=== PATIENT | male | born 1975 | race Caucasian/White ===

== ENCOUNTER 2024-01-10 08:08 | Observation (INO) | payer SELFPAY ==
[2024-01-10] VITALS (11 sets, daily range): BP systolic 113–140; BP diastolic 62–88; PULSE 62–85; RESP 18–24; TEMP 36.7–37.2; O2SAT 95–99; BMI 35.1
--- NOTE | 2024-01-10 08:12 | ECG_ITS ---
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 Measurements Intervals [place] Rate: 67 P: 38 KS: 146 QRS: 40 QRSD: 78 T: 32 QT: 339 QTc: 359 Interpretive Statements SINUS RHYTHM WITH OCCASIONAL VENTRICULAR PREMATURE COMPLEXES NONSPECIFIC ST & T-WAVE ABNORMALITY No previous ECG available for comparison Electronically Signed On 01-10-2024 23:05:49 CDT by Jonathan Urias M.D. [email or web address] medical [id number]
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
--- NOTE | 2024-01-10 08:29 | W.ED.CHESTPA ---
HPI - Chest Pain General: Chief Complaint: Chest Pain Stated Complaint: cp Time Seen by Provider: 01/10/24 08:18 History of Present Illness: 48-year-old male presents to the emergency room with complaints of right-sided chest pain. Radiates into his back. Patient has not had discomfort like this before. Began suddenly this morning. No history of DVT no recent fever sweats chills cough shortness of breath. No productive cough no history of diabetes patient is a smoker. He has no family history of early heart disease no history of PE or DVT. Associated symptoms: Deny abdominal pain, dyspnea or fever(s) Related Data Home Medications Medication Instructions Recorded Confirmed cetirizine 10 mg tablet 10 mg PO DAILY PRN allergies 01/10/24 01/10/24 Allergies Allergy/AdvReac Type Severity Reaction Status Date / Time No Known Allergies Allergy Verified 01/10/24 08:20 Review of Systems Const: Denies: fever(s) or chills Card: Reports: chest pain Resp: Denies: dyspnea GI: Denies: abdominal pain : Denies: dysuria, urinary frequency or urinary urgency Musc: Denies: neck pain or back pain Skin/Breast: Denies: rash PFSH ED PFSH: Medical History No pertinent past medical history Surgical History No pertinent past surgical history Social History Smoking and tobacco/nicotine status: current every day tobacco/nicotine user e-cigarettes E-Cigarette Details: vaporizer device Alcohol intake: never Substance/Drug Use: never Physical Exam Const: GENERAL APPEARANCE: cooperative ORIENTATION/CONSCIOUSNESS: Yes awake, Yes oriented to person, Yes oriented to place and Yes oriented to time HENMT: COMMON NORMALS: normocephalic, atraumatic and hearing grossly normal bilaterally HEAD & SCALP: normocephalic and atraumatic Resp: COMMON NORMALS: normal respiratory effort, No retractions, No use of accessory muscles and clear to auscultation bilaterally AUSCULTATION: clear to auscultation bilaterally Cardio: COMMON NORMALS: regular rate, regular rhythm and No murmurs present (Cardio) RATE: regular rate RHYTHM: regular rhythm GI: COMMON NORMALS: Soft to palpation and No hepatosplenomegaly present AUSCULTATION: Yes normoactive bowel sounds PALPATION: Yes Soft to palpation, No Tenderness to palpation present (GI), No Guarding due to palpation present (GI) and Yes No hepatosplenomegaly present Extremity: COMMON NORMALS: normal to inspection, capillary refill normal, no clubbing, cyanosis or edema, no calf tenderness and no pedal edema Neuro: SENSORIUM/ORIENTATION: Yes oriented to person, Yes oriented to place and Yes oriented to time Skin: COMMON NORMALS: no rashes or lesions noted GENERAL SKIN EXAM: no rashes or lesions noted Course Vital Signs: Vital signs: Vital Signs Temperature 98.2 F 01/10/24 14:02 Pulse Rate 85 01/10/24 14:02 Respiratory Rate 18 01/10/24 08:15 Blood Pressure 136/88 01/10/24 14:02 Pulse Oximetry 95 01/10/24 14:02 Oxygen Delivery Me thod Room Air 01/10/24 14:02 MDM - Chest Pain Medical Decision Making Chest pain is reproducible with change in position and with deep inhalation and exhalation shallow breathing is currently reducible we did give a GI cocktail early on with no relief of symptoms with that. His initial EKG showed some nonspecific ST changes a second EKG showed some questionable ST elevation possible early repull there is no reciprocal changes I did contact Dr. Olivas he reviewed came and seen the patient. Given his reported symptoms he is not losing acute STEMI. Cardiac enzymes trended negative. Patient continues to have pain. He denies any IV drug use. Cultures have been done we will admit the patient for pericarditis a echo has been done and is pending read and discussed with Dr. Olivas he recommended admission to hospitalist and consult for himself. Medical Records I reviewed the patient's medical records. Lab Data I reviewed the patient's lab results. 01/10/24 08:22 01/10/24 08:22 Radiology Impressions Chest X-Ray 01/10/24 08:19 IMPRESSION: 1. Cardiomegaly with probable basilar edema. Laboratory Results WBC 7.47 10^3/uL (3.29-11.43) 01/10/24 08:22 RBC 5.30 10^6/uL (3.85-5.65) 01/10/24 08:22 Hgb 14.60 g/dL (11.27-16.99) 01/10/24 08:22 Hct 46.6 % (37-53) 01/10/24 08:22 MCV 87.9 fl (82-101) 01/10/24 08:22 MCH 27.5 pg (27-33) 01/10/24 08:22 MCHC 31.3 g/dL (30-55) 01/10/24 08:22 RDW 15.9 % (12.1-15.1) H 01/10/24 08:22 Plt Count 254 10^3/cmm (157-399) 01/10/24 08:22 MPV 11.0 fL (7.4-10.4) H 01/10/24 08:22 Neut % (Auto) 64.9 % 01/10/24 08:22 Lymph % (Auto) 25.2 % 01/10/24 08:22 [place] % (Auto) 6.2 % 01/10/24 08:22 Eos % (Auto) 2.8 % 01/10/24 08:22 Baso % (Auto) 0.5 % 01/10/24 08:22 Neut # (Auto) 4.85 10^3/uL (1.8-7.7) 01/10/24 08:22 Lymph # (Auto) 1.9 10^3/uL (0.8-4.8) 01/10/24 08:22 [place] # (Auto) 0.5 10^3/uL (0.2-0.9) 01/10/24 08:22 Eos # (Auto) 0.2 10^3/uL (0.0-0.8) 01/10/24 08:22 Baso # (Auto) 0.0 10^3/uL (0.0-0.1) 01/10/24 08:22 Nucleated RBC % (auto) 0 % 01/10/24 08:22 Nucleated RBCs # 0.0 /100WBC 01/10/24 08:22 ESR 4 mm/hr (0-10) 01/10/24 13:12 Sodium 141 mmol/L (136-145) 01/10/24 08:22 Potassium 4.4 mmol/L (3.5-5.1) 01/10/24 08:22 Chloride 104 mmol/L (98-107) 01/10/24 08:22 Carbon Dioxide 27 mmol/L (22-29) 01/10/24 08:22 Anion Gap 14.4 (5-19) 01/10/24 08:22 BUN 16 mg/dL (6-20) 01/10/24 08:22 Creatinine 1.1 mg/dL (0.7-1.2) 01/10/24 08:22 GFR Calculation 72.1 mL/min (90-130) L 01/10/24 08:22 Glucose 124 mg/dL (65-115) H 01/10/24 08:22 Estimat Average Glucose 131 01/10/24 08:22 Hemoglobin A1c 6.2 % (4.0-6.0) H 01/10/24 08:22 Calculated Osmolality 295 mOsm/kg (285-295) 01/10/24 08:22 Calcium 9.6 mg/dL (8.5-10.5) 01/10/24 08:22 Ferritin 288 ng/mL (30-400) 01/10/24 08:22 Total Bilirubin 0.4 mg/dL (0.15-1.2) 01/10/24 08:22 AST 21 U/L (0-40) 01/10/24 08:22 ALT 21 U/L (0-41) 01/10/24 08:22 Alkaline Phosphatase 64 U/L (40-130) 01/10/24 08:22 Troponin T Baseline 8 ng/L (0-15) 01/10/24 08:22 Troponin T 120 Minute 8.08 ng/L (0-15) 01/10/24 10:17 Delta Troponin T 0.08 ABS# (0-10) 01/10/24 10:17 C-Reactive Protein 3.0 mg/L (0.0-4.9) 01/10/24 08:22 C-Reactive Protein Cancelled 01/10/24 08:22 NT-Pro-B Natriuret Pep < 36 pg/mL (0-125) 01/10/24 08:22 NT-Pro-B Natriuret Pep < 36 pg/mL (0-125) 01/10/24 08:22 Total Protein 6.8 g/dL (6.6-8.7) 01/10/24 08:22 Albumin 4.3 g/dL (3.5-5.2) 01/10/24 08:22 Globulin 2.5 g/dL (1.3-4.6) 01/10/24 08:22 Procalcitonin 0.06 ng/mL (0-0.5) 01/10/24 08:22 Urine Color Yellow (Yellow) 01/10/24 09:23 Urine Appearance Clear (CLEAR) 01/10/24 09:23 Urine pH 5.0 (5-7) 01/10/24 09:23 Ur Specific [place] 1.026 (1.005-1.030) 01/10/24 09:23 Urine Protein Negative (Negative) 01/10/24 09:23 Urine Glucose (UA) Negative (Normal) 01/10/24 09:23 Urine Ketones Negative (Negative) 01/10/24 09:23 Urine Blood Negative (Negative) 01/10/24 09:23 Urine Nitrate Negative (Negative) 01/10/24 09:23 Urine Bilirubin Negative (Negative) 01/10/24 09:23 Urine Urobilinogen 0.2 mg/dL (Negative) 01/10/24 09:23 Ur Leukocyte Esterase Negative (Negative) 01/10/24 09:23 Amorphous Sediment Not Reportable 01/10/24 09:23 Urine Opiates Screen Negative ng/mL (Negative) 01/10/24 09:23 Ur Barbiturates Screen Negative ng/mL (Negative) 01/10/24 09:23 Ur Phencyclidine Scrn Negative ng/mL (Negative) 01/10/24 09:23 Ur Amphetamines Screen Negative ng/mL (Negative) 01/10/24 09:23 U Benzodiazepines Scrn Negative ng/mL (Negative) 01/10/24 09:23 Urine Cocaine Screen Negative ng/mL (Negative) 01/10/24 09:23 U Marijuana (THC) Screen Negative ng/mL (Negative) 01/10/24 09:23 Ethyl Alcohol < 10 mg/dL (0-10) 01/10/24 08:22 All radiology interpretation(s) finalized by discharge Discharge Plan Discharge Patient Disposition: Admitted As Inpatient Admit Provider: Siddharth Castrejon Clinical Impression: Pericarditis Condition: Stable Coding Level of Care Code ED Property Clerk for Ilene Ellis
[2024-01-10 08:45] LABS: Basophils % 0.5 %; Eosinophils # 0.2 10^3/uL (0.0-0.8); Eosinophils % 2.8 %; Hematocrit 46.6 % (37-53); Lymphocytes # 1.9 10^3/uL (0.8-4.8); Lymphocytes % 25.2 %; Mean Corpuscular HGB Conc 31.3 g/dL (30-55); Mean Corpuscular Hemoglobin 27.5 pg (27-33); Mean Corpuscular Volume 87.9 fl (82-101); Monocytes # 0.5 10^3/uL (0.2-0.9); Monocytes % 6.2 %; Neutrophils # 4.85 10^3/uL (1.8-7.7); Neutrophils % 64.9 %; Nucleated Red Blood Cells % 0 %; Platelet Count 254 10^3/cmm (157-399); Red Cell Distribution Width 15.9 % (12.1-15.1); White Blood Count 7.47 10^3/uL (3.29-11.43)
[2024-01-10] MEDS: ketorolac 30 mg/mL INJ IVP ×2 (08:49→10:21)
[2024-01-10] MEDS: lidocaine 2% viscous 15 ML, aluminum-mag hydrox-simethicon 30 ML, sucralfate oral liq 1 GM PO (08:49)
[2024-01-10 09:00] LABS: Troponin(5th) Baseline 8 ng/L (0-15)
[2024-01-10 09:03] LABS: Alanine Aminotransferase 21 U/L (0-41); Albumin Level 4.3 g/dL (3.5-5.2); Alkaline Phosphatase 64 U/L (40-130); Aspartate Amino Transferase 21 U/L (0-40); Blood Urea Nitrogen 16 mg/dL (6-20); Calcium 9.6 mg/dL (8.5-10.5); Carbon Dioxide 27 mmol/L (22-29); Chloride 104 mmol/L (98-107); Creatinine Clr Calc Pharmacy 107.8887; Globulin 2.5 g/dL (1.3-4.6); Glomerular Filtration Rate 72.1 mL/min (90-130); Glucose 124 mg/dL (65-115); Osmolality Calculated 295 mOsm/kg (285-295); Sodium 141 mmol/L (136-145); Total Bilirubin 0.4 mg/dL (0.15-1.2); Total Protein 6.8 g/dL (6.6-8.7)
[2024-01-10 09:04] LABS: Anion Gap 14.4 (5-19); Potassium 4.4 mmol/L (3.5-5.1)
[2024-01-10 09:36] LABS: Add Urine Microscopic? NO
[2024-01-10 09:42] LABS: Bilirubin Urine Negative (Negative); Blood Urine Negative (Negative); Glucose Urine UA Negative (Normal); Ketones Urine Negative (Negative); Leukocyte Esterase Urine Negative (Negative); Nitrate Urine Negative (Negative); Protein Urine Negative (Negative); Specific Gravity, Urine 1.026 (1.005-1.030); Urine Appearance Clear (CLEAR); Urine Color Yellow (Yellow); Urobilinogen Urine 0.2 mg/dL (Negative)
--- NOTE | 2024-01-10 10:01 | ECG_ITS ---
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 Measurements Intervals [place] Rate: 64 P: 64 RI: 164 QRS: 54 QRSD: 79 T: 33 QT: 359 QTc: 370 Interpretive Statements SINUS RHYTHM WITH SINUS ARRHYTHMIA ST ELEVATION CONSISTENT WITH INJURY, PERICARDITIS, OR EARLY REPOLARIZATION [ST ELEVATION W/O NORMALLY INFLECTED T-WAVE] NONSPECIFIC ST & T-WAVE ABNORMALITY Compared to ECG 01/10/2024 08:12:53 ST (T wave) deviation now present Early repolarization now present Ventricular premature complex(es) no longer present T-wave abnormality still present Electronically Signed On 01-10-2024 23:13:13 CDT by Jonathan Urias M.D. [id number]
[2024-01-10 10:04] LABS: Charge for UA Resulting for Rev
--- NOTE | 2024-01-10 10:15 | USCV_ITS ---
Librado Yadav Age: 48 Gender: M : 1975 Exam Date: 01/10/2024 11:07 Ordering Phys: Keith Turner DO Technologist: CT Exam Location: [facility] [place] Indication: cp BP: 126 / 88 HR: 54 Rhythm: Sinus Technical Quality: Adequate MEASUREMENTS (Male / Female) Normal Values 2D ECHO LVOT Diameter 2.1 cm LV Ejection Fraction MOD 4C 56.0 % LV Ejection Fraction MOD 2C 58.3 % LV Ejection Fraction 2C AL 58.3 % LA Diameter 3.1 cm RA Systolic Volume 4C AL 37.6 ml RA Systolic Volume 4C MOD 32.6 ml LA Sys Volume AL 56.2 cm cubed LA Sys Volume Index AL 23.2 cm cubed/m squared Aorta at Sinotubular Diameter 2.6 cm M-MODE LA Ao Ratio MM 1.2 AV Cusp Separation MM 2.4 cm DOPPLER AV Peak Velocity 102.0 cm/s LVOT Peak Velocity 84.0 cm/s AV Area Cont Eq vti 3.5 cm squared AV Area Cont Eq pk 3.0 cm squared MV Peak Velocity 68.0 cm/s MV Area PHT 4.2 cm squared Mitral E to A Ratio 1.4 TR Peak Velocity 153.0 cm/s TR Peak Gradient 9.4 mmHg TV Peak E Velocity 72.0 cm/s Right Atrial Pressure 3.0 mmHg Pulmonary Artery Systolic Pressu 12.4 mmHg PV Peak Velocity 93.0 cm/s FINDINGS Left Ventricle Left ventricle is normal in size. LV systolic function is normal with EF 55 to 60%. No regional wall motion abnormalities are seen. Right Ventricle Normal in size and function Right Atrium Normal in size Left Atrium Normal in size Mitral Valve Structurally normal mitral valve. Mild mitral regurgitation. Aortic Valve Structurally normal aortic valve. No significant stenosis or regurgitation. Tricuspid Valve Mild tricuspid regurgitation. Pulmonary artery systolic pressure is normal. Pulmonic Valve Not well visualized Pericardium Normal Aorta Normal in size IVC Appears to be normal CONCLUSIONS LV systolic function is normal with EF of 55-60% Mild mitral regurgitation Mild tricuspid regurgitation No comparison studies are available. Kristian Olivas MD (Electronically Signed) Final Date: 10 January 2024 16:56 S
[2024-01-10 10:38] LABS: NT Pro B Type Natriuretic Pept < 36 pg/mL (0-125)
[2024-01-10 10:48] LABS: Troponin 5 2HR 8.08 ng/L (0-15); Troponin 5 2HR Delta 0.08 ABS# (0-10)
--- NOTE | 2024-01-10 11:46 | PC.NURSE ---
TOPICAL NITRO NOT ADMINISTERED DUE TO HYPOTENSION 110/88
[2024-01-10 13:17] LABS: Erythrocyte Sedimentation Rate 13 mm/hr (0-10)
[2024-01-10 13:25] LABS: Erythrocyte Sedimentation Rate 4 mm/hr (0-10)
[2024-01-10 13:35] LABS: Alcohol Level < 10 mg/dL (0-10)
--- NOTE | 2024-01-10 13:38 | P.HP_ITS ---
Providers/Chief Complaint 2 Admitting Physician: Siddharth Castrejon MD Chief Complaint: cp History of Present Illness Librado Yadav is a 48 year old male with no significant past medical history, was incarcerated for over 30 years, recently got out of residential, he tells me that he has not been eating healthy for the last few weeks, but today he started to develop severe substernal chest pain, stabbing-like sensation, he thought it was severe acid reflux, as he has been eating what ever he wants for the last few weeks, however the severe stabbing chest pain persisted and then radiated to his right arm, associate with numbness and tingling of the right arm, and then started radiating to the back, he denies any fevers, no chills, no cough, no nausea, no vomiting, no abdominal pain, no lightheadedness, no dizziness, no recent sick contacts no recent travel, no calf pain, calf swelling, hemoptysis, he does tell me that the chest pain is persisting currently but the chest pain is quite steady, 3 out of 10 Review of Systems 2 Const: Denies: fever(s) Card: Reports: chest pain Resp: Denies: dyspnea GI: Denies: abdominal pain Medications/Allergies Home Medications Medication Instructions Recorded Confirmed Last Taken Type cetirizine 10 mg tablet 10 mg PO DAILY PRN allergies 01/10/24 01/10/24 Unknown History Allergies Allergy/AdvReac Type Severity Reaction Status Date / Time No Known Allergies Allergy Verified 01/10/24 08:20 PFSH Acute 2 PFSH: Medical History (Updated 01/10/24 @ 13:45 by Siddharth Castrejon MD) No pertinent past medical history Surgical History (Updated 01/10/24 @ 13:43 by Siddharth Castrejon MD) No pertinent past surgical history Social History (Updated 01/10/24 @ 13:44 by Siddharth Castrejon MD) Smoking and tobacco/nicotine status: current every day tobacco/nicotine user e- cigarettes E-Cigarette Details: vaporizer device Alcohol intake: never Substance/Drug Use: never Vitals/I&O/Wt Last Vital Signs Temp 98.1 F 01/10/24 08:15 Pulse 63 01/10/24 12:27 Resp 18 01/10/24 08:15 BP 114/79 01/10/24 12:27 Pulse Ox 99 01/10/24 12:27 O2 Del Method Room Air 01/10/24 12:27 Weight last 48 hrs Weight 114.305 kg Physical Exam 2 Const: COMMON NORMALS: no acute distress and patient oriented x3 HENMT: COMMON NORMALS: normocephalic HEAD & SCALP: normocephalic Eye: COMMON NORMALS: Equal, round and reactive pupils present and EOMs intact bilaterally Neck/C-Spine: COMMON NORMALS: no JVD Lymph: LYMPHATIC: no lymphadenopathy noted Resp: COMMON NORMALS: normal respiratory effort, No retractions, No use of accessory muscles and clear to auscultation bilaterally AUSCULTATION: clear to auscultation bilaterally Cardio: COMMON NORMALS: regular rate, regular rhythm, S1 normal heart sound present and S2 normal heart sound present RATE: regular rate RHYTHM: r egular rhythm HEART SOUNDS: S1 normal heart sound present and S2 normal heart sound present GI: COMMON NORMALS: Normal to inspection, nondistended, normoactive bowel sounds present, Soft to palpation and non-tender Extremity: COMMON NORMALS: no calf tenderness and no pedal edema Neuro: COMMON NORMALS: patient oriented x3, CN's II-XII intact bilaterally and moves all extremities Psych: COMMON NORMALS: mental status grossly normal Data 01/10/24 08:22 01/10/24 08:22 Micro: Microbiology 01/10/24 10:45 Blood Culture - Preliminary Blood SPECIMEN COLLECTED 01/10/24 10:51 Blood Culture - Preliminary Blood SPECIMEN COLLECTED A&P Assessment and plan (1) Chest pain: - Serial EKGs, serial troponins, telemetry monitoring -Continue aspirin, statin, -Cardiac echo -GI cocktail -Morphine for pain -CRP, Pro-Navdeep, sed rate, respiratory viral panel, ANGELA Attestations 2 Medical Necessity Statement*: Patient requires hospitalization, outpatient with observation, for chest pain Diagnoses Chest pain R07.9
[2024-01-10 13:42] LABS: Procalcitonin 0.06 ng/mL (0-0.5)
[2024-01-10 13:51] LABS: Amphetamines Screen Urine Negative (Negative); Barbiturates Screen Urine Negative (Negative); Benzodiazepines Screen Urine Negative (Negative); Cocaine Screen Urine Negative (Negative); Opiate Screen Urine Negative (Negative); PCP Screen Urine Negative (Negative); THC Screen Urine Negative (Negative)
[2024-01-10 14:00] LABS: Ferritin 288 ng/mL (30-400); NT Pro B Type Natriuretic Pept < 36 pg/mL (0-125)
[2024-01-10 14:14] LABS: Estmated Average Glucose 131; Hemoglobin A1C 6.2 % (4.0-6.0)
[2024-01-10 14:21] LABS: Chol HDL Ratio 4.88 mg/dL (1.0-5.00); Cholesterol 200 mg/dL (0-200); HDL Cholesterol 41 mg/dL (60-100); LDL Cholesterol Calculated 147 mg/dL (50-129); LDL HDL Ratio 3.59 RATIO (0.00-3.22); Thyroid Stimulating Hormone 1.42 uIU/mL (0.27-4.20); Triglycerides 61 mg/dL (0-150)
[2024-01-10] MEDS: enoxaparin 40 mg/0.4 mL Syringe SUBCUT (15:22)
[2024-01-10] MEDS: pantoprazole 40 mg SDV IVP (15:22)
[2024-01-10 15:28] LABS: Adenovirus Not Detected (NOT DETECT); Chlamydia Pneumoniae Not Detected (NOT DETECT); Coronavirus 229E,HKU1,NL63,OC4 Not Detected (NOT DETECT); Human Metapneumovirus Not Detected (NOT DETECT); Human Rhinovirus/Enterovirus Not Detected (NOT DETECT); Influenza A Not Detected (NOT DETECT); Influenza A H1 Not Detected (NOT DETECT); Influenza A H1-2009 Not Detected (NOT DETECT); Influenza A H3 Not Detected (NOT DETECT); Influenza B Not Detected (NOT DETECT); Mycoplasma Pneumoniae Not Detected (NOT DETECT); Parainfluenza Virus Type 1 Not Detected (NOT DETECT); Parainfluenza Virus Type 2 Not Detected (NOT DETECT); Parainfluenza Virus Type 3 Not Detected (NOT DETECT); Parainfluenza Virus Type 4 Not Detected (NOT DETECT); Respiratory Syncytial Virus A Not Detected (NOT DETECT); Respiratory Syncytial Virus B Not Detected (NOT DETECT); SARS-COV-2 Not Detected (NOT DETECT)
[2024-01-10 15:47] LABS: Troponin 5 6HR 8.28 ng/L (0-15); Troponin 5 6HR Delta 0.28 ng/L (0-12)
--- NOTE | 2024-01-10 16:00 | ECG_ITS ---
[facility] Test Date: 2024-01-10 Pat Name: Librado Yadav Department: Room: 107 Gender: Male Assessment Nurse: : 1975 Requested By: Keith Cameron Order Number: [id number] Ino MD: Jonathan Urias M.D. Measurements Intervals [place] Rate: 77 P: 66 DE: 155 QRS: 47 QRSD: 85 T: 2 QT: 334 QTc: 378 Interpretive Statements SINUS RHYTHM POSSIBLE LEFT ATRIAL ENLARGEMENT [-0.1mV P-WAVE IN V1/V2] NONSPECIFIC ST & T-WAVE ABNORMALITY Compared to ECG 01/10/2024 10:01:10 Sinus arrhythmia no longer present ST (T wave) deviation no longer present Early repolarization no longer present T-wave abnormality still present Electronically Signed On 01-10-2024 23:10:19 CDT by Jonathan Urias M.D. [id number]
--- NOTE | 2024-01-10 16:57 | PM.CONSULT ---
Providers/Reason For Consult Consulting Physician/Specialty*: Kristian Olivas MD/ Cardiology Reason for Consult*: Chest pain/EKG changes Requesting Physician: Dr Turner Attending Physician: Siddharth Castrejon MD History of Present Illness History of Present Illness Librado Yadav is a 48 year old male with no significant prior cardiac history who presented to hospital with severe right-sided chest pain. On and off for a few weeks. Feels acid reflux related feeling. Patient's chest pain symptoms are atypical. Deep breathing worsens it. EKG shows dynamic changes consistent with early repolarization vs pericarditis. Troponins have not trended up. Blood pressure is elevated. Review of Systems Const: Denies: fever(s) Card: Reports: chest pain Resp: Denies: dyspnea GI: Denies: abdominal pain Medications/Allergies Home Medications Medication Instructions Recorded Confirmed Last Taken Type cetirizine 10 mg tablet 10 mg PO DAILY PRN allergies 01/10/24 01/10/24 Unknown History Allergies Allergy/AdvReac Type Severity Reaction Status Date / Time No Known Allergies Allergy Verified 01/10/24 08:20 Current Medications Generic Name Dose Route Start Last Admin Trade Name Freq PRN Reason Stop Dose Admin Aspirin 81 mg 01/10/24 13:45 01/10/24 15:24 Aspirin 81 Mg Ec Tablet PO Not Given DAILY STEFF Enoxaparin Sodium 40 mg 01/10/24 13:45 01/10/24 15:22 Enoxaparin 40 Mg/0.4 Ml Syringe SUBCUT 40 mg Q24H STEFF Administration Pantoprazole Sodium 40 mg 01/10/24 13:45 01/10/24 15:22 Pantoprazole 40 Mg Sdv IVP 40 mg Q24H STEFF Administration PFSH Acute PFSH: Medical History No pertinent past medical history Surgical History No pertinent past surgical history Social History Smoking and tobacco/nicotine status: current every day tobacco/nicotine user e-cigarettes E-Cigarette Details: vaporizer device Alcohol intake: never Substance/Drug Use: never Vitals/I&O/Wt Last Vital Signs Temp 98.4 F 01/10/24 16:00 Pulse 81 01/10/24 16:00 Resp 24 H 01/10/24 16:00 BP 119/62 01/10/24 16:00 Pulse Ox 96 01/10/24 16:00 O2 Del Method Room Air 01/10/24 16:00 Weight last 48 hrs Weight 252 lb Physical Exam Narrative: GENERAL: Patient is alert, awake and oriented x3. [] NECK: No jugular vein distension. [] HEENT: No cyanosis. No icterus. No pallor. [] HEART: Regular S1 and S2. No murmur, rub or gallop. [] LUNGS: Clear to auscultate bilaterally. [] CENTRAL NERVOUS SYSTEM: Grossly nonfocal. [] EXTREMITIES: Lower extremities with 1+ edema bilaterally. Data 01/11/24 04:27 01/11/24 04:27 Micro: Microbiology 01/10/24 10:45 Blood Culture - Preliminary Blood SPECIMEN COLLECTED 01/10/24 10:51 Blood Culture - Preliminary Blood SPECIMEN COLLECTED A&P Assessment and plan (1) Chest pain: Plan Patient's chest pain is atypical. Has some EKG changes that are concerning for possible pericarditis. We will rule out ischemia with stress test. Obtain echocardiogram. If pericardial effusion seen or pain does not resolve with a normal stress test, then start on pericarditis therapy with high dose NSAIDs. Can start antihypertensive medications. Thank you for involving us care of this patient. We will continue to follow. Please call with questions. Consult Attestations Medical Necessity Statement: Care expected to cross 2 midnights. Coding Level of Care Code Acute Code for [facility] Diagnoses Chest pain R07.9
--- NOTE | 2024-01-10 18:08 | ECG_ITS ---
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 Interpretive Statements LEXISCAN SESTAMIBI STRESS TEST Procedure: At the baseline, the blood pressure was 124/89 mmHg with a heart rate of 58 bpm. The electrocardiogram showed sinus bradycardia, normal axis with normal ST and T's. The Lexiscan was infused over a period of 20 seconds. A total of 0.4 mg of Lexiscan was infused. The stress phase was continued for a total of 5 minutes. Heart rate was at the end of stress phase was 79 bpm and a blood pressure of 112/74 mmHg. The EKG at the peak infusion revealed normal sinus rhythm with no significant ST-T wave changes. Sestamibi was injected 20 seconds after the Lexiscan infusion. Blood pressure at the end of recovery phase was 118/86 mmHg with a heart rate of 68 bpm. Conclusion: 1. Normal EKG response to Lexiscan infusion 2. No Lexiscan induced chest pain or cardiac arrhythmia. 3. Normal blood pressure and heart rate response. 4. Sestamibi/sestamibi perfusion scan pending; see separate report. Electronically Signed On 01-13-2024 19:01:11 CDT by Kristian Olivas M.D. [id number]
[2024-01-10] MEDS: atorvastatin 40 mg Tablet PO (20:30)
[2024-01-11] VITALS (9 sets, daily range): BP systolic 116–167; BP diastolic 83–107; PULSE 58–79; RESP 14–20; TEMP 36.8–37; O2SAT 96–99
[2024-01-11] MEDS: morphine 4 mg/mL SDV 1 mL 1 MG IVP (01:40)
[2024-01-11] MEDS: calcium carbonate 500 mg Chew Tablet PO (01:40)
[2024-01-11 05:03] LABS: Basophils % 0.3 %; Eosinophils # 0.2 10^3/uL (0.0-0.8); Eosinophils % 2.6 %; Hematocrit 46.4 % (37-53); Lymphocytes # 2.3 10^3/uL (0.8-4.8); Mean Corpuscular Hemoglobin 27.2 pg (27-33); Mean Corpuscular Volume 87.5 fl (82-101); Monocytes # 0.6 10^3/uL (0.2-0.9); Monocytes % 7.4 %; Neutrophils # 4.61 10^3/uL (1.8-7.7); Neutrophils % 59.2 %; Nucleated Red Blood Cells % 0 %; Platelet Count 244 10^3/cmm (157-399); Red Cell Distribution Width 15.5 % (12.1-15.1); White Blood Count 7.79 10^3/uL (3.29-11.43)
[2024-01-11 05:33] LABS: Alanine Aminotransferase 19 U/L (0-41); Alkaline Phosphatase 63 U/L (40-130); Anion Gap 13.3 (5-19); Aspartate Amino Transferase 19 U/L (0-40); Blood Urea Nitrogen 19 mg/dL (6-20); Calcium 9.2 mg/dL (8.5-10.5); Carbon Dioxide 28 mmol/L (22-29); Chloride 105 mmol/L (98-107); Creatinine Clr Calc Pharmacy 107.8887; Globulin 2.5 g/dL (1.3-4.6); Glomerular Filtration Rate 72.1 mL/min (90-130); Glucose 103 mg/dL (65-115); Osmolality Calculated 297 mOsm/kg (285-295); Potassium 4.3 mmol/L (3.5-5.1); Sodium 142 mmol/L (136-145); Total Bilirubin 0.3 mg/dL (0.15-1.2); Total Protein 6.5 g/dL (6.6-8.7)
[2024-01-11] MEDS: regadenoson 0.4 Mg/5 ml Syringe IVP (07:20)
--- NOTE | 2024-01-11 07:46 | PC.NURSE ---
pt is off unit in cdl for stress test.
[2024-01-11] MEDS: aspirin 81 mg EC Tablet PO (09:02)
--- NOTE | 2024-01-11 09:51 | P.PN_ITS ---
Subjective 2 Subjective: Patient is doing well. No chest pain. Vitals/I&O/Wt Last Vital Signs Temp 98.2 F 01/11/24 08:00 Pulse 79 01/11/24 08:00 Resp 20 H 01/11/24 08:00 BP 167/100 01/11/24 08:00 Pulse Ox 98 01/11/24 08:00 O2 Del Method Room Air 01/11/24 08:00 01/10/24 01/11/24 01/11/24 22:59 06:59 14:59 Intake Total 720 / 720 360 / 360 Output Total 425 / 425 Balance 720 / 720 -425 / 295 360 / 360 Weight last 48 hrs Weight 252 lb Physical Exam 2 Narrative: GENERAL: Patient is alert, awake and oriented x3. [] NECK: No jugular vein distension. [] HEENT: No cyanosis. No icterus. No pallor. [] HEART: Regular S1 and S2. No murmur, rub or gallop. [] LUNGS: Clear to auscultate bilaterally. [] CENTRAL NERVOUS SYSTEM: Grossly nonfocal. [] EXTREMITIES: Lower extremities with 1+ edema bilaterally. Data 01/11/24 04:27 01/11/24 04:27 Micro: Microbiology 01/10/24 10:45 Blood Culture - Preliminary Blood SPECIMEN COLLECTED 01/10/24 10:51 Blood Culture - Preliminary Blood SPECIMEN COLLECTED A&P Assessment and plan (1) Chest pain: Plan Stress test if not showing ischemia. Patient is chest pain-free. Can put on Losartan 50mg daily and GERD therapy. Outpatient cardiology follow up. Attestations 2 Medical Necessity Statement*: Care expected to cross 2 midnights. Coding Level of Care Code Acute Code for [facility] Diagnoses Chest pain R07.9
--- NOTE | 2024-01-11 11:41 | PM.DCS ---
Discharge Providers Date of Admission: 01/10/24 13:32 Date of Discharge: January 11, 2024 Attending Provider at Admission: Siddharth Castrejon MD Attending Provider at Discharge: Siddharth Castrejon MD Diagnoses at Discharge Discharge Diagnosis (1) Chest pain: Status: Acute Reason for Visit Reason for Visit: cp Hospital Course Hospital Course Librado Yadav is a 48 year old male with no significant past medical history, was incarcerated for over 30 years, recently got out of group home, he tells me that he has not been eating healthy for the last few weeks, but today he started to develop severe substernal chest pain, stabbing-like sensation, he thought it was severe acid reflux, as he has been eating what ever he wants for the last few weeks, however the severe stabbing chest pain persisted and then radiated to his right arm, associate with numbness and tingling of the right arm, and then started radiating to the back, he denies any fevers, no chills, no cough, no nausea, no vomiting, no abdominal pain, no lightheadedness, no dizziness, no recent sick contacts no recent travel, no calf pain, calf swelling, hemoptysis, he does tell me that the chest pain is persisting currently but the chest pain is quite steady, 3 out of 10 Patient was admitted to [facility] for chest pain, his second EKG did show evidence of nonspecific diffuse ST elevations, case was discussed with cardiology, felt that given patient's normal troponins, and patient is atypical chest pain sounded more like pericarditis. Nonetheless he was monitored as inpatient, had serial EKGs, serial troponins, remained chest pain-free. Stress test as below and cardiac echo as below Cardiac stress test IMPRESSIONS 1. Normal myocardial perfusion imaging with no evidence of ischemia 2. LV systolic function is normal 3. TID ratio is elevated. In absence of significant perfusion abnormalities, significance of this finding is equivocal. Clinical correlation is required Cardiac echo CONCLUSIONS LV systolic function is normal with EF of 55-60% Mild mitral regurgitation Mild tricuspid regurgitation No comparison studies are available. -Patient remained chest pain-free ? Will discharge on losartan for blood pressure control, can continue aspirin, statin ? For his pericarditis I have discharged him on tapering dose of ibuprofen ? Protonix for GERD ? Patient was advised if he would have any recurrent chest pain to go to the emergency room ? Follow-up with primary care provider for blood pressure check . Physical Exam Const: COMMON NORMALS: no acute distress and patient oriented x3 Resp: COMMON NORMALS: normal respiratory effort, No retractions, No use of accessory muscles and clear to auscultation bilaterally AUSCULTATION: clear to auscultation bilaterally Cardio: COMMON NORMALS: regular rate, regular rhythm, S1 normal heart sound present and S2 normal heart sound present RATE: regular rate RHYTHM: regular rhythm HEART SOUNDS: S1 normal heart sound present and S2 normal heart sound present GI: COMMON NORMALS: Normal to inspection, nondistended, normoactive bowel sounds present and non-tender Extremity: COMMON NORMALS: no pedal edema Neuro: COMMON NORMALS: patient oriented x3 Psych: COMMON NORMALS: mental status grossly normal Discharge Data Studies Completed and Pending Completed Studies During Hospitalization Category Date Time Status Sestamibi Stress Test Request Routine Exams 01/10/24 18:08 Draft XR chest 1V portable [id number] Stat Exams 01/10/24 08:19 Completed NM selene perf SPECT r/s* [id number] Routine Nuc Med 01/11/24 18:08 Completed US echo complete [CV. echo complete* [id number]] Stat Ultrasound 01/10/24 10:15 Completed Pending at discharge Category Date Time Status ANGELA Profile Rheumatology Stat Lab 01/10/24 15:22 Received Blood Culture Stat Lab 01/10/24 10:45 Results Complete Blood Count w/Auto AM LABS Lab 01/12/24 04:00 Ordered Complete Blood Count w/Auto AM LABS Lab 01/13/24 04:00 Ordered Comprehensive Metabolic Panel AM LABS Lab 01/12/24 04:00 Ordered Comprehensive Metabolic Panel AM LABS Lab 01/13/24 04:00 Ordered Radiology Impressions Chest X-Ray 01/10/24 08:19 IMPRESSION: 1. Cardiomegaly with probable basilar edema. Laboratory Results WBC 7.79 10^3/uL (3.29-11.43) 01/11/24 04:27 RBC 5.30 10^6/uL (3.85-5.65) 01/11/24 04:27 Hgb 14.40 g/dL (11.27-16.99) 01/11/24 04:27 Hct 46.4 % (37-53) 01/11/24 04:27 MCV 87.5 fl (82-101) 01/11/24 04:27 MCH 27.2 pg (27-33) 01/11/24 04:27 MCHC 31.0 g/dL (30-55) 01/11/24 04:27 RDW 15.5 % (12.1-15.1) H 01/11/24 04:27 Plt Count 244 10^3/cmm (157-399) 01/11/24 04:27 MPV 11.0 fL (7.4-10.4) H 01/11/24 04:27 Neut % (Auto) 59.2 % 01/11/24 04:27 Lymph % (Auto) 30.0 % 01/11/24 04:27 Clarke % (Auto) 7.4 % 01/11/24 04:27 Eos % (Auto) 2.6 % 01/11/24 04:27 Baso % (Auto) 0.3 % 01/11/24 04:27 Neut # (Auto) 4.61 10^3/uL (1.8-7.7) 01/11/24 04:27 Lymph # (Auto) 2.3 10^3/uL (0.8-4.8) 01/11/24 04:27 Clarke # (Auto) 0.6 10^3/uL (0.2-0.9) 01/11/24 04:27 Eos # (Auto) 0.2 10^3/uL (0.0-0.8) 01/11/24 04:27 Baso # (Auto) 0.0 10^3/uL (0.0-0.1) 01/11/24 04:27 Nucleated RBC % (auto) 0 % 01/11/24 04:27 Nucleated RBCs # 0.0 /100WBC 01/11/24 04:27 ESR 4 mm/hr (0-10) 01/10/24 13:12 Sodium 142 mmol/L (136-145) 01/11/24 04:27 Potassium 4.3 mmol/L (3.5-5.1) 01/11/24 04:27 Chloride 105 mmol/L (98-107) 01/11/24 04:27 Carbon Dioxide 28 mmol/L (22-29) 01/11/24 04:27 Anion Gap 13.3 (5-19) 01/11/24 04:27 BUN 19 mg/dL (6-20) 01/11/24 04:27 Creatinine 1.1 mg/dL (0.7-1.2) 01/11/24 04:27 GFR Calculation 72.1 mL/min (90-130) L 01/11/24 04:27 Glucose 103 mg/dL (65-115) 01/11/24 04:27 Estimat Average Glucose 131 01/10/24 08:22 Hemoglobin A1c 6.2 % (4.0-6.0) H 01/10/24 08:22 Calculated Osmolality 297 mOsm/kg (285-295) H 01/11/24 04:27 Calcium 9.2 mg/dL (8.5-10.5) 01/11/24 04:27 Ferritin 288 ng/mL (30-400) 01/10/24 08:22 Total Bilirubin 0.3 mg/dL (0.15-1.2) 01/11/24 04:27 AST 19 U/L (0-40) 01/11/24 04:27 ALT 19 U/L (0-41) 01/11/24 04:27 Alkaline Phosphatase 63 U/L (40-130) 01/11/24 04:27 Troponin T Baseline 8 ng/L (0-15) 01/10/24 08:22 Troponin T 120 Minute 8.08 ng/L (0-15) 01/10/24 10:17 Delta Troponin T 0.08 ABS# (0-10) 01/10/24 10:17 Troponin T Hi Sens 6Hr 8.28 ng/L (0-15) 01/10/24 15:21 Troponin T Hi Sens 6Hr Delta 0.28 ng/L (0-12) 01/10/24 15:21 C-Reactive Protein 3.0 mg/L (0.0-4.9) 01/10/24 08:22 C-Reactive Protein Cancelled 01/10/24 08:22 NT-Pro-B Natriuret Pep < 36 pg/mL (0-125) 01/10/24 08:22 NT-Pro-B Natriuret Pep < 36 pg/mL (0-125) 01/10/24 08:22 Total Protein 6.5 g/dL (6.6-8.7) L 01/11/24 04:27 Albumin 4.0 g/dL (3.5-5.2) 01/11/24 04:27 Globulin 2.5 g/dL (1.3-4.6) 01/11/24 04:27 Triglycerides 61 mg/dL (0-150) 01/10/24 08:22 Cholesterol 200 mg/dL (0-200) 01/10/24 08:22 LDL Cholesterol, Calc 147 mg/dL (50-129) H 01/10/24 08:22 HDL Cholesterol 41 mg/dL (60-100) L 01/10/24 08:22 LDL/HDL Ratio 3.59 RATIO (0.00-3.22) H 01/10/24 08:22 Cholesterol/HDL Ratio 4.88 mg/dL (1.0-5.00) 01/10/24 08:22 Procalcitonin 0.06 ng/mL (0-0.5) 01/10/24 08:22 TSH 1.42 uIU/mL (0.27-4.20) 01/10/24 08:22 Urine Color Yellow (Yellow) 01/10/24 09:23 Urine Appearance Clear (CLEAR) 01/10/24 09:23 Urine pH 5.0 (5-7) 01/10/24 09:23 Ur Specific [place] 1.026 (1.005-1.030) 01/10/24 09:23 Urine Protein Negative (Negative) 01/10/24 09:23 Urine Glucose (UA) Negative (Normal) 01/10/24 09:23 Urine Ketones Negative (Negative) 01/10/24 09:23 Urine Blood Negative (Negative) 01/10/24 09:23 Urine Nitrate Negative (Negative) 01/10/24 09:23 Urine Bilirubin Negative (Negative) 01/10/24 09:23 Urine Urobilinogen 0.2 mg/dL (Negative) 01/10/24 09:23 Ur Leukocyte Esterase Negative (Negative) 01/10/24 09:23 Amorphous Sediment Not Reportable 01/10/24 09:23 Urine Opiates Screen Negative ng/mL (Negative) 01/10/24 09:23 Ur Barbiturates Screen Negative ng/mL (Negative) 01/10/24 09:23 Ur Phencyclidine Scrn Negative ng/mL (Negative) 01/10/24 09:23 Ur Amphetamines Screen Negative ng/mL (Negative) 01/10/24 09:23 U Benzodiazepines Scrn Negative ng/mL (Negative) 01/10/24 09:23 Urine Cocaine Screen Negative ng/mL (Negative) 01/10/24 09:23 U Marijuana (THC) Screen Negative ng/mL (Negative) 01/10/24 09:23 Ethyl Alcohol < 10 mg/dL (0-10) 01/10/24 08:22 Adenovirus (PCR) Not detected (NOT DETECT) 01/10/24 13:32 C. pneumoniae DNA (PCR) Not detected (NOT DETECT) 01/10/24 13:32 Coronavirus 229E (PCR) Not detected (NOT DETECT) 01/10/24 13:32 Human Metapneumovir PCR Not detected (NOT DETECT) 01/10/24 13:32 Influenza A (H1) PCR Not detected (NOT DETECT) 01/10/24 13:32 Influ A (H1/09) PCR Not detected (NOT DETECT) 01/10/24 13:32 Influenza A (H3) PCR Not detected (NOT DETECT) 01/10/24 13:32 Influenza Type A (PCR) Not detected (NOT DETECT) 01/10/24 13:32 Influenza Type B (PCR) Not detected (NOT DETECT) 01/10/24 13:32 M. pneumoniae (PCR) Not detected (NOT DETECT) 01/10/24 13:32 Parainfluenza 1 (PCR) Not detected (NOT DETECT) 01/10/24 13:32 Parainfluenza 2 (PCR) Not detected (NOT DETECT) 01/10/24 13:32 Parainfluenza 3 (PCR) Not detected (NOT DETECT) 01/10/24 13:32 Parainfluenza 4 (PCR) Not detected (NOT DETECT) 01/10/24 13:32 RSV Type A (PCR) Not detected (NOT DETECT) 01/10/24 13:32 RSV Type B (PCR) Not detected (NOT DETECT) 01/10/24 13:32 Entero/Rhino (PCR) Not detected (NOT DETECT) 01/10/24 13:32 SARS-CoV-2 (PCR) Not detected (NOT DETECT) 01/10/24 13:32 Vitals Last Vital Signs Temp 98.2 F 01/11/24 08:00 Pulse 79 01/11/24 08:00 Resp 20 H 01/11/24 08:00 BP 167/100 01/11/24 08:00 Pulse Ox 98 01/11/24 08:00 O2 Del Method Room Air 01/11/24 08:00 Discharge Plan Discharge Patient Disposition: Home Condition: Stable Prescriptions: New atorvastatin 40 mg Tablet 40 mg PO BEDTIME 30 Days Qty: 30 0RF aspirin 81 mg Tablet,Delayed Release (Dr/Ec) 81 mg PO DAILY 30 Days Qty: 30 0RF losartan 50 mg tablet 50 mg PO DAILY 30 Days Qty: 30 0RF Protonix 40 mg tablet,delayed release (DR/EC) 40 mg PO DAILY PRN (Reason: gerd) 30 Days Qty: 30 0RF ibuprofen 400 mg tablet See Rx Instructions .ROUTE .COMPLEX Qty: 18 0RF Rx Instructions: 1 tab 3 times daily for 3 days, followed by 1 tab twice daily for 3 days, followed by 1 tab daily for 3 days Discontinued cetirizine 10 mg Tablet 10 mg PO DAILY PRN (Reason: allergies) Discharge Orders: Discharge Order (Routine); Ordered 01/11/24 Ordered By: Siddharth Castrejon Discharge Diet: Cardiac Discharge Activity: Resume usual activity Patient Instructions: Losartan (By mouth) (Farida), Chest Pain (GEN), GERD (Gastroesophageal Reflux Disease) (GEN), Stress Echocardiogram (GEN), Opioid Safety Activity Restrictions/Additional Instructions: Outpatient cardiology follow up. Discharge Attestations Time Spent in Discharge Care*: greater than 30 min Quality Metrics Clinical Quality Measures [ No reported AMI, CVA or VTE this stay] Coding Level of Care Code 10695 Total time (in minutes) for Discharge: 45 Diagnoses Chest pain R07.9
[2024-01-11] MEDS: losartan 50 mg Tablet PO (11:45)
[2024-01-11 14:28] LABS: COMPLEMENT COMPONENT C3C 155 mg/dL (82-185); COMPLEMENT COMPONENT C4C 38 mg/dL (15-53)
--- NOTE | 2024-01-11 18:08 | NMCV_ITS ---
NM selene perf SPECT r/s* [id number] Librado Yadav Age: 48 Gender: M : 1975 Exam Date: 01/11/2024 07:30 Ordering Phys: Siddharth Castrejon MD Technologist: JC Bruce Exam Location: [facility] Indications: cp STRESS TEST Please see separate stress test report in [facility] for full findings IMAGE PROTOCOL Rest/Stress 1 Lexiscan Day Radiopharmaceutical Dose (mCi) Administration Site Administered by Rest: Tc-99m 10.9 IV JC Bruce Sestamibi Stress:Tc-99m 33 IV JC Manzano Sestamibi Rest: 11-Jan-2024 60 Discovery 630 Stress: 11-Jan-2024 30 Discovery 630 0.4mg Lexiscan. Images obtained in supine and prone position. SPECT RESULTS Technical Quality: Good Raw Data Analysis: Normal Image Corrections: No attenuation or motion correction applied Summed Stress Score: 1 Summed Rest Score: 0 Summed Difference Score: 1 PERFUSION FINDINGS SPECT images demonstrate homogeneous tracer distribution throughout the myocardium. FUNCTIONAL RESULTS (calculated via Gated SPECT) Stress Image LV EF (%): 66 Stress EDV (mL):106 TID: 1.34 Stress ESV (mL):36 FUNCTIONAL FINDINGS: There is normal left ventricular systolic function. TID ratio is elevated. IMPRESSIONS 1. Normal myocardial perfusion imaging with no evidence of ischemia 2. LV systolic function is normal 3. TID ratio is elevated. In absence of significant perfusion abnormalities, significance of this finding is equivocal. Clinical correlation is required. Kristian Olivas MD (Electronically Signed) Final Date: 11 January 2024 09:38 S
[2024-01-12 06:09] LABS: CENTROMERE B ANTIBODY <1.0 NEG AI (<1.0 NEG); JO-1 ANTIBODY <1.0 NEG AI (<1.0 NEG); RNP ANTIBODY <1.0 NEG AI (<1.0 NEG); SCL-70 ANTIBODY <1.0 NEG AI (<1.0 NEG); SJOGREN'S ANTIBODY (SS-A) <1.0 NEG AI (<1.0 NEG); SM ANTIBODY <1.0 NEG AI (<1.0 NEG); SS-B <1.0 NEG AI (<1.0 NEG)
[2024-01-12 14:44] LABS: COMPLEMENT, TOTAL (CH50) 50 U/mL (31-60)
[2024-01-12 15:18] LABS: ANA SCREEN, IFA NEGATIVE (NEGATIVE)
[2024-01-15 09:36] LABS: THYROID PEROXIDASE ANTIBODIES <1 IU/mL (<9)
[2024-01-18 14:40] LABS: DNA AB (DS) CRITHIDIA,IFA NEGATIVE (NEGATIVE)
== END 2024-01-11 13:27 | disposition home or self-care (01) ==
LOC: ER 09:40 → CSU 13:33
PROVIDERS: Admitting Provider Family Medicine; Emergency Provider Family Medicine; Visit Provider Family Medicine
DX: I31.9 Disease of pericardium, unspecified (principal); R07.89 Other chest pain; I08.1 Rheumatic disorders of both mitral and tricuspid valves; K21.9 Gastro-esophageal reflux disease without esophagitis; F17.290 Nicotine dependence, other tobacco product, uncomplicated; Z79.899 Other long term (current) drug therapy
CPT/HCPCS: 36415; 71045; 78452; 80053; 80061; 80306; 80307; 81003; 82728; 83036; 83880; 84145; 84443; 84484; 85025; 85651; 86140; 86160; 86162; 86235; 86255; 86376; 87040; 87486; 87581; 87633; 93005; 93017; 93306; 96372; 96374; 96375; 96376; 99285; A9500; G0378; J1650; J1885; J2270; J2470; J2785